=== PATIENT | male | born 1925 | race Caucasian/White ===

== ENCOUNTER 2016-10-05 00:55 | Emergency (ER) | payer OTHER ==
[~2016-10-05] VITALS: Ht 180.3 cm; Wt 64.0 kg
[~2016-10-05 00:55] MED LIST: AMLODIPINE BES2.5 MG PO; ASPIRIN EC325 M2 PO; ASPIRIN EC81 M1 PO; CIPROFLOXACIN500 MG PO; FINASTERIDE5 M1 PO; FLOMAX0.4 M1 PO; FUROSEMIDE40 MG PO; HYGROTON 25MG T25 MG PO; LASIX40 M1 PO; LISINOPRIL2.5 M1 PO; LOSARTAN POTAS100 MG PO; METOLAZONE5 M1; OXYBUTYNIN CHLOR5 M2 PO; PARICALCITOL1 MC1 PO; PRAVACHOL80 M1 PO; SEA-OMEGA 50 C1 EACH PO; VITAMIN B-121000 MC3 PO; VITAMIN D2000 UNI1 PO; XARELTO20 M2 PO
--- NOTE | 2016-10-05 03:43 | ED GI/GU/ABDOMINAL COMPLAINT ---
History of Present Illness General Chief Complaint: General Adult Stated Complaint: SOMETHING IS STUCK IN THROAT Source: patient, EMS Exam Limitations: poor historian Vital Signs & Intake/Output Vital Signs & Intake/Output Vital Signs Date Time Temp Pulse Resp B/P Pulse O2 O2 Flow FiO2 Ox Delivery Rate 10/05 0715 97.6 88 20 108/70 96 Room Air 10/05 0457 96.8 93 20 96/68 100 Room Air 10/05 0130 98 Nasal 4.0L Cannula 10/05 0100 97.1 107 20 102/60 95 Nasal 4.0L Cannula Allergies Coded Allergies: NO KNOWN ALLERGIES (01/06/15) Reconcile Medications Aspirin (Ecotrin*) 325 MG TABLET.DR 1 TAB PO DAILY PVD Cholecalciferol (Vitamin D3) (Vitamin D) (Unknown Strength) TABLET 1,000 MG PO DAILY SUPPLEMENT (Reported) Cyanocobalamin (Vitamin B-12) (Unknown Strength) TABLET 1,000 PO DAILY SUPPLEMENT (Reported) Finasteride 5 MG TABLET 1 TAB PO DAILY BPH Fish Oil (Sea[place] 50 Capsule) 1 EACH CAPSULE 1 CAP PO BID supplement ( Reported) Furosemide (Lasix) 40 MG TABLET 1 TAB PO BID DIURETIC (Reported) Lisinopril 2.5 MG TABLET 1 TAB PO DAILY HEART Oxybutynin Chloride 5 MG TABLET 1 TAB PO BID BLADDER (Reported) Pravastatin Sodium (Pravachol) 80 MG TABLET 1 TAB PO DAILY CHOLESTEROL ( Reported) Tamsulosin HCl (Flomax) 0.4 MG CAP.ER.24H 1 TAB PO DAILY BPH Triage Note: PT ITZELA FROM [facility]. PER EMS PT FEELS THOUGH HE HAS SOMETHING STUCK IN HIS THROAT. PT STARTED EXPERIENCING THIS FEELING 2 HRS POST DINNER. PT STATES THAT HE CAN ONLY REMEMBER EATING PECAN PIE. UPON ARRIVAL PT O2 HIGH 80'S. PT PLACED ON 4L O2 WHICH BROUGHT O2 SAT TO 95%. Triage Nurses Notes Reviewed? yes HPI: Patient presents for evaluation of "something stuck in my throat". Patient is a rather poor historian and this is not entirely clear exactly when this occurred. The patient denies eating at the time. He states that he feels something is caught in the throat and he can't swallow anymore. (JEMMA SINGLETON,FLORES Chan) Past History Medical History Neurological: NONE EENT: NONE Cardiovascular: AFIB, cardiomyopathy, CHF, hyperlipidemia Respiratory: NONE Gastrointestinal: NONE Hepatic: NONE Renal: chronic kidney disease (unknown stage) Musculoskeletal: NONE Psychiatric: NONE Endocrine: diabetes Blood Disorders: NONE Cancer(s): NONE ORAL SURGERY PHYSICIAN/Reproductive: NONE History of MRSA: No History of VRE: No History of CDIFF: No Pneumonia Vaccine: 07/24/06 Surgical History Surgical History: non-contributory Psychosocial History Who do you live with Son Services at Home None What is your primary language British Family History Family History, If Any: BROTHER (Heart Disease). FH: heart disease SISTER Diabetes mellitus (DM) (FLORES EASTON MD) Medical History Any Pertinent Medical History? see below for history Family History Hx Contributory? No (TESS WILSON MD) Review of Systems Review of Systems Constitutional: Reports: see HPI, weakness. EENTM: Reports: see HPI. Respiratory: Reports: no symptoms. Cardiovascular: Reports: no symptoms. GI: Reports: no symptoms. Genitourinary: Reports: no symptoms. Musculoskeletal: Reports: no symptoms. Skin: Reports: no symptoms. Neurological/Psychological: Reports: no symptoms. Hematologic/Endocrine: Reports: no symptoms. Immunologic/Allergic: Reports: no symptoms. All Other Systems: Reviewed and Negative (TESS WILSON MD) Physical Exam Physical Exam Gastrointestinal: SEE BELOW Comments: Gen.: Well-nourished, well-developed, no acute respiratory distress. Head: Normocephalic, atraumatic. Eyes: Normal inspection bilaterally Ears: Normal inspection bilaterally Nose: Normal inspection Throat/mouth : Dry mucosa, no apparent foreign body, poor dentition Neck: Supple, full range of motion, no goiter, no stridor Heart: Regular rate and rhythm, no murmurs rubs or gallops Lungs: Clear to auscultation bilaterally with normal air entry Chest: Nontender Back: Normal range of motion Abdomen: Soft, nontender, nondistended, normal bowel sounds Extremities: Normal range of motion grossly, equal radial pulses, no cyanosis clubbing or edema Neurologic: Cranial nerves grossly intact, speech is clear Skin: warm and dry Psychiatric: Calm, cooperative, no apparent delusions or hallucinations (FLORES EASTON MD) Physical Exam General Appearance: well developed/nourished, alert, awake, anxious, mild distress Head: atraumatic, normal appearance Eyes: Bilateral: normal appearance, PERRL, EOMI, normal inspection. Ears, Nose, Throat, Mouth: hearing grossly normal, moist mucous membrane Neck: normal inspection, supple, full range of motion, normal alignment Respiratory: normal breath sounds, chest non-tender, no respiratory distress, quiet respiration, lungs clear Cardiovascular: regular rate/rhythm, normal peripheral pulses, norml femoral pulses equa Peripheral Pulses: 4+ carotid (R), 4+ carotid (L) Male Genitals: normal genitalia Back: normal inspection, normal range of motion Extremities: normal range of motion, no ligament instability Neurologic/Psych: no motor/sensory deficits, awake, alert, oriented x 3, normal mood/affect, pillow filler II-XII nml as tested Skin: intact, normal color, warm/dry Core Measures ACS in differential dx? No Severe Sepsis Present: No Septic Shock Present: No (KATIE SINGLETON,TESS) Progress Plan of Care: Orders Procedure Date/time Status CASE MANAGEMENT CONSULT 10/05 813 Active Diagnostic Imaging: Discussed w/RAD: CT Scan. Radiology Impression: PATIENT: EDILBERTO MAYNARD PRESENT AGE: 89 PATIENT ACCOUNT NO: [id number] : [birth year] LOCATION: [facility] ORDERING PHYSICIAN: FLORES EASTON MD SERVICE DATE: 10/05/16 EXAM TYPE: CAT - CT CHEST WO IV CONTRAST; CT NECK WO IV CONTRAST EXAMINATION: CT NECK WITHOUT CONTRAST CT CHEST WITHOUT CONTRAST CLINICAL INFORMATION: Esophageal foreign body. Something stuck in the throat. COMPARISON: Chest x-ray 04/21/2016. Chest CT from 04/19/2016. TECHNIQUE: Noncontrast CT acquisitions of the neck and chest are obtained. Multiplanar reformats are acquired and utilized for image interpretation. FINDINGS: Neck: This is a limited noncontrast study. The orbital soft tissues, the parotid glands, the left submandibular gland is normal. There is a punctate calcification along the upper margin of the right submandibular gland. Oral cavity is normal. Chronic calcified tonsillitis within the palatine tonsils bilaterally. Nasopharynx is normal. There is mild soft tissue fullness in the region of the hypopharynx that can be correlated with direct visual inspection to exclude underlying pathology in this location. No radiopaque foreign bodies are identified. No retropharyngeal fluid collections. Prominent anterior disc osteophyte complexes at the C4-C5, C5-C6, and C6-C7 levels result in dorsal indentation of the hypopharynx and proximal cervical esophagus. There is no cervical lymphadenopathy. There is atherosclerotic calcification of the carotid bifurcations bilaterally. Partially imaged intracranial compartment is unremarkable. Chest: No radiopaque foreign bodies are identified along the course of the thoracic esophagus. Esophagus is mildly distended along its upper thoracic portion. Moderate-sized pleural effusions bilaterally that are increased in size when compared to the prior chest CT. There is also interlobular septal thickening and a few scattered groundglass opacities that are new, possibly reflecting alveolar/interstitial pulmonary edema. Suspect rounded atelectasis at the right lung base. A few additional scattered nonspecific airspace opacities are present. There is no mediastinal nor hilar lymphadenopathy. The heart is enlarged. There is coronary artery atherosclerotic calcification. Generalized anasarca. No significant soft tissue findings. 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 No acute osseous findings. IMPRESSION: - No radiopaque foreign bodies. - There is mild soft tissue fullness in the region of the hypopharynx just below the level of the piriform sinuses on image 62 of series 2 that can be correlated with direct visual inspection to exclude underlying pathology in this location. - Prominent anterior disc osteophyte complexes at the C4-C5, C5-C6, and C6-C7 levels result in dorsal indentation of the hypopharynx and proximal cervical esophagus. - Moderate-sized pleural effusions bilaterally that are increased in size when compared to the prior chest CT. There is also interlobular septal thickening and a few scattered groundglass opacities that are new, possibly reflecting alveolar/interstitial pulmonary edema. Suspect rounded atelectasis at the right lung base. A few additional scattered nonspecific airspace opacities are present. DICTATED BY: FLORES MONTALVO MD DATE/TIME DICTATED:10/05/16426 TRANSFER WORKER:DEYANIRA DATE/TIME TRANSCRIBED:10/05/16426 CONFIDENTIAL, DO NOT COPY WITHOUT APPROPRIATE AUTHORIZATION. <Electronically signed in Other Vendor System> SIGNED BY: FLORES MONTALVO MD 10/05/16 5138 Initial ED EKG: none Comments: 10/05/2016 5:48:22 AM patient's case discussed with Dr. Mack who recommends glucagon. He will evaluate the patient shortly. 10/05/2016 8:21:07 AM patient signed out to Dr. Wilson. Apparently the patient feels better and is now tolerating P0 liquids. However the patient seemed to be doing poorly at home so case management consultation will be obtained. (JEMMA SINGLETON,FLORES Chan) Differential Diagnosis: gastritis, PUD/GERD, esophageal food impaction (TESS WILSON MD) Departure Departure Condition: Stable Referrals: JOSE GLOVER MD (PCP/Family) Additional Instructions: Please note that there might be incidental findings in your evaluation that are unrelated to the current emergency department visit. Please notify your primary care doctor about this emergency department visit in order to obtain and review all of the testing performed so that these incidental findings can be monitored as needed. If you had an x-ray performed, please understand that some fractures may not be seen on the initial set of x-rays. If your symptoms persist you might need a repeat set of x-rays to check for such a fracture. If you had a laceration evaluated, please understand that foreign bodies such as glass or wood may not be visible to the naked eye or on plain x-rays. If the wound becomes red, swollen, increasingly more painful or if there is any drainage from the wound, please have it reevaluated by a physician for the possibility of a retained foreign body. Departure Forms: Customer Survey General Discharge Information (JEMMA SINGLETON,FLORES Chan) Departure Time of Disposition: 858 Disposition: HOME OR SELF CARE Clinical Impression Primary Impression: Esophageal disorder (TESS WILSON MD)
--- NOTE | 2016-10-05 04:40 | CT SCAN REPORT ---
EXAMINATION: CT NECK WITHOUT CONTRAST CT CHEST WITHOUT CONTRAST CLINICAL INFORMATION: Esophageal foreign body. Something stuck in the throat. COMPARISON: Chest x-ray 04/21/2016. Chest CT from 04/19/2016. TECHNIQUE: Noncontrast CT acquisitions of the neck and chest are obtained. Multiplanar reformats are acquired and utilized for image interpretation. FINDINGS: Neck: This is a limited noncontrast study. The orbital soft tissues, the parotid glands, the left submandibular gland is normal. There is a punctate calcification along the upper margin of the right submandibular gland. Oral cavity is normal. Chronic calcified tonsillitis within the palatine tonsils bilaterally. Nasopharynx is normal. There is mild soft tissue fullness in the region of the hypopharynx that can be correlated with direct visual inspection to exclude underlying pathology in this location. No radiopaque foreign bodies are identified. No retropharyngeal fluid collections. Prominent anterior disc osteophyte complexes at the C4-C5, C5-C6, and C6-C7 levels result in dorsal indentation of the hypopharynx and proximal cervical esophagus. There is no cervical lymphadenopathy. There is atherosclerotic calcification of the carotid bifurcations bilaterally. Partially imaged intracranial compartment is unremarkable. Chest: No radiopaque foreign bodies are identified along the course of the thoracic esophagus. Esophagus is mildly distended along its upper thoracic portion. Moderate-sized pleural effusions bilaterally that are increased in size when compared to the prior chest CT. There is also interlobular septal thickening and a few scattered groundglass opacities that are new, possibly reflecting alveolar/interstitial pulmonary edema. Suspect rounded atelectasis at the right lung base. A few additional scattered nonspecific airspace opacities are present. There is no mediastinal nor hilar lymphadenopathy. The heart is enlarged. There is coronary artery atherosclerotic calcification. Generalized anasarca. No significant soft tissue findings. 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 No acute osseous findings. IMPRESSION: - No radiopaque foreign bodies. - There is mild soft tissue fullness in the region of the hypopharynx just below the level of the piriform sinuses on image 62 of series 2 that can be correlated with direct visual inspection to exclude underlying pathology in this location. - Prominent anterior disc osteophyte complexes at the C4-C5, C5-C6, and C6-C7 levels result in dorsal indentation of the hypopharynx and proximal cervical esophagus. - Moderate-sized pleural effusions bilaterally that are increased in size when compared to the prior chest CT. There is also interlobular septal thickening and a few scattered groundglass opacities that are new, possibly reflecting alveolar/interstitial pulmonary edema. Suspect rounded atelectasis at the right lung base. A few additional scattered nonspecific airspace opacities are present.
[2016-10-05 07:15] VITALS: BP 108/70
--- NOTE | 2016-10-05 07:47 | Cons- Gastroenterology ---
General Information and HPI Consulting Request Requested By: FLORES EASTON MD Reason for Consult: Called 5:50 a.m. by the ER for 2 different patients with simultaneous food impactions Allergies/Medications Allergies: Coded Allergies: NO KNOWN ALLERGIES (01/06/15) Home Med List: Aspirin (Ecotrin*) 325 MG TABLET.DR 1 TAB PO DAILY PVD Cholecalciferol (Vitamin D3) (Vitamin D) (Unknown Strength) TABLET 1,000 MG PO DAILY SUPPLEMENT (Reported) Cyanocobalamin (Vitamin B-12) (Unknown Strength) TABLET 1,000 PO DAILY SUPPLEMENT (Reported) Finasteride 5 MG TABLET 1 TAB PO DAILY BPH Fish Oil ([place] 50 Capsule) 1 EACH CAPSULE 1 CAP PO BID supplement ( Reported) Furosemide (Lasix) 40 MG TABLET 1 TAB PO BID DIURETIC (Reported) Lisinopril 2.5 MG TABLET 1 TAB PO DAILY HEART Oxybutynin Chloride 5 MG TABLET 1 TAB PO BID BLADDER (Reported) Pravastatin Sodium (Pravachol) 80 MG TABLET 1 TAB PO DAILY CHOLESTEROL ( Reported) Tamsulosin HCl (Flomax) 0.4 MG CAP.ER.24H 1 TAB PO DAILY BPH Past History Travel History Traveled to [place] past 21 day No Medical History Neurological: NONE EENT: NONE Cardiovascular: AFIB, cardiomyopathy, CHF, hyperlipidemia Respiratory: NONE Gastrointestinal: NONE Hepatic: NONE Renal: chronic kidney disease (unknown stage) Musculoskeletal: NONE Psychiatric: NONE Endocrine: diabetes Blood Disorders: NONE Cancer(s): NONE ROOFER/Reproductive: NONE Surgical History Surgical History: non-contributory Family History Relations & Conditions If Any: BROTHER (Heart Disease). FH: heart disease SISTER Diabetes mellitus (DM) Psychosocial History Services at Home: None Assessment/Plan Consult Acknowledgment - Thank you for your consult request.
--- NOTE | 2016-10-05 11:27 | NUR ---
10/05/16 CASE MGMT- PT ALREADY D/C PRIOR TO MY ARRIVAL- PT RESIDES AT [facility] ASSISTED LIVING PT SON TOSHIAKai- DR WILSON REQUESTING HHS TO BE SET UP. CALL PLACED TO [facility] SPOKE WITH VIROLOGIST SHE STATES THERE IS NO NURSE THERE TO ASK IF [facility] HAS A PREFERENCE. CALL PLACED TO PT SON JEB RAYMUNDO WHICH IS SAME PHONE NUMBER PT AND MESSAGE LEFT. AWAITING RETURN CALL BACK TO SET UP [facility].
--- NOTE | 2016-10-06 09:28 | NUR ---
10/06 CASE MGMT- SPOKE WITHNURSING LINK MACHINE OPERATOR YAHIR AT [facility] STATES PT SIGNED [facility]O [facility] TODAY AND SON IS GETTING [address] FOR PT TO REMAIN AT [facility] UNLESS CHANGE OCCURS.
== END 2016-10-05 10:23 ==
LOC: ERH 00:55
DX: K22.9 Disease of esophagus, unspecified (principal)
CPT/HCPCS: J1610